=== PATIENT | female | born 1950 | race Caucasian/White ===

== ENCOUNTER → 2022-07-30 12:47 | Outpatient (CLI) | payer MEDICARE, OTHER, SELFPAY ==
--- NOTE | 2022-07-30 12:54 | DI.RAD.S_ITS ---
PROCEDURE: FL BARIUM SWALLOW W SPEECH INDICATIONS: Dysphagia, unspecified COMPARISON: None. TECHNIQUE: Examination was conducted in conjunction with speech pathology per standard protocol. In the lateral projection, filming was performed of the patient swallowing. AP projection filming may also be performed with patient swallowing. COMPARISON: FINDINGS: Function: The oral preparatory phase appears normal, with proper containment. The subsequent oral propulsive phase, pharyngeal phase, and esophageal phase of swallowing also appear normal with all proffered substances. No laryngotracheal penetration or aspiration. No pathologic vallecular pooling. Morphology: No cricopharyngeal bar is identified. No cervical esophageal webs. No Zenker's diverticulum. No strictures. IMPRESSION: No evidence of aspiration or penetration. Please see speech pathology report for complete findings. Dictated by: Eduard Ching M.D. on 07/30/2022 at 16:41 Approved by: Eduard Ching M.D. on 07/30/2022 at 16:41
--- NOTE | 2022-07-30 16:43 | ST.SWALLOW ---
Visit Care Team Role Provider Type Isidro Betancourt MD Attending Provider Non-Staff Primary Care Provider Referring Provider Specialty: Family Practice Address: [address] [place] [address], [id number] Email: Modified Barium Swallow Study [employer] Modified Barium Swallow Study Start: 07/30/22 16:28 Freq: Status: Active Protocol: Document 07/30/22 16:28 ZS (Rec: 07/30/22 16:43 ZS [id number]) Modified Barium Swallow Study Total Time Visit Start Time 13:30 Visit Stop Time 14:00 Total Visit Minutes 30 Setting Setting Outpatient Care Patient Information Identification Type Name Patient History The pt reported coughing prior to putting food in her mouth, stating that sometimes the smell of a food can cause coughing. She added coughing occurs when she eats solids or drinks liquids and she has been unable to identify a pattern despite keeping a food log. Pt stated it feels like the food gets stuck and won 't go up or down despite continued coughing. Pt reported coughing can last 30- 45 minutes before food clears. She stated she is often the last one eating at the table and it takes her about 45 minutes longer to finish her meal than everyone else at the table. Pt reported eating mostly ruffage (e.g., salads ) and needing to chew thoroughly, which contributes to long meal times. She added it is harder to chew now as she is missing teeth. Subjective Observations The pt arrived on time and ambulated with a walker. Provided overview of process and procedure and pt expressed understanding and agreed to participate. Patient Positioning Position View Lat-A/P Imaging Lateral View Textures Administered Trials Presented Thin Liquid via Cup,Solomon Liquid via Cup,Regular Textures Oral Phase Source: MBSIMP (TM) (C) Bolus Specific Scoring Grid Lip Closure No Impairment (WNL) Tongue Control During Bolus Hold No Impairment (WNL) Bolus Prep/Mastication No Impairment (WNL) Bolus Transport/Lingual Motion No Impairment (WNL) A/P Lingual Propulsion Delay No Oral Residue Mild Impairment Residue Clearing No Impairment (WNL) Nasal Regurgitation No Additional Oral Phase Observations The pt exhibited no anterior or posterior loss of bolus during tongue hold. Timely and efficient mastication and a/p propulsion observed. Mild oral residue in oral cavity following swallows, which pt cleared with a second swallow independently. Pharyngeal Phase Source: MBSIMP (TM) (C) Bolus Specific Scoring Grid Delayed Initiation of Pharyngeal Swallow Yes: head of bolus in pyriforms Soft Palate Elevation No Impairment (WNL) Tongue Base Strength/Range of Motion No Impairment (WNL) Residue Along the Tongue Base No Laryngeal Elevation No Impairment (WNL) Anterior Hyoid Movement No Impairment (WNL) Epiglottic Range of Motion No Impairment (WNL) Vallecular Residue Yes Clearance of Vallecular Residue No Impairment (WNL) Laryngeal Vestibular Closure No Impairment (WNL) Pharyngeal Stripping Wave Mild Impairment Pharyngeal Contraction No Impairment (WNL) Posterior Pharyngeal Wall Residue No Upper Esophageal Sphincter Opening No Impairment (WNL) Residue in the Pyriform Sinuses Yes Clearance of Residue in the Pyriform No Impairment (WNL) Sinuses Esophageal Clearance Upright Position No Impairment (WNL) Pharyngoesophageal Backflow Observed No Additional Pharyngeal Phase Observations Delayed initiation of pharyngeal swallow observed, with the head of the bolus in the pyriforms. Initiation of pharyngeal swallow was slow, though once triggered, hyoid elevation and excursion and laryngeal vestibular closure were WNL. No instances of aspiration or penetration observed. One instance of coughing on initial trial of thin liquids, which pt stated was a reaction to barium flavor rather than difficulty swallowing. Imaging reinforced this as no penetration was observed when coughing occurred. Mild residue remained in valleculae and pyriforms, though was cleared with a spontaneous second swallow. A/P View Textures Administered Trials Presented Thin Liquid via Cup,Barium Tablet A/P View Observations Pharyngeal Contraction No Impairment (WNL) Esophageal Function Slowed Clearing Esophageal Clearance Upright Position Minimal Impairment Additional Observations Pt presented with slowed clearing of barium tablet and minimally slowed clearing of thin barium. Pt may exhibit increased difficulty with thicker liquids and rapid rate of eating, based on slowed clearing observed and pt report of needing to eat slowly to avoid feeling food get stuck when she swallows. Barium tablet cleared with additional swallows of water. Clinical Impressions Findings The pt presents with swallowing WNL. She exhibited slowed clearing of barium tablet through esophagus and may benefit from GI referral if she continues to need to eat meals at a markedly slow pace to avoid feeling food get stuck when she swallows. Nothing present to indicate why pt experiences coughing, as airway protection was WNL and no instances of aspiration or penetration were observed. Due to pt report of coughing when smelling certain foods, referral for jacquard card lacer is recommended to rule out food sensitivities or other possible causes for smell aversion to foods. Patient Appropriate for Therapy No Recommendations Diet Liquids Order Thin Diet Order Regular Medication Recommendation As Tolerated Treatment Plan Recommended Referrals GI Consult,Dietary Consult
== END ==
PROVIDERS: PCP Family Medicine; Referring Provider Family Medicine; Visit Provider Family Medicine
DX: R13.10 Dysphagia, unspecified (principal)
CPT/HCPCS: 74230; 92611

== ENCOUNTER → 2023-07-10 15:33 | Outpatient (CLI) | payer MEDICARE, OTHER, SELFPAY | PROVIDERS: PCP Family Medicine; Referring Provider Internal Medicine Critical Care Medicine; Visit Provider Internal Medicine Critical Care Medicine | DX: J44.9 Chronic obstructive pulmonary disease, unspecified (principal); Z87.891 Personal history of nicotine dependence | CPT/HCPCS: 94060; 94726; 94729 ==

== ENCOUNTER 2024-05-10 15:44 | Emergency (ER) | payer MEDICARE, SELFPAY ==
[2024-05-10 16:00] VITALS: BP 145/67; PULSE 71; RESP 18; TEMP 36.9; O2SAT 95; BMI 46.8
--- NOTE | 2024-05-10 16:22 | DI.US.S_ITS ---
PROCEDURE: US PELVIC COMPLETE INDICATIONS: Vaginal bleeding TECHNIQUE: Real-time scanning was performed of the pelvic organs, with image documentation. Additional endovaginal scanning was necessary due to incomplete visualization of the adnexal and endometrial structures by transabdominal scanning. COMPARISON: None. FINDINGS: Uterus: Uterus is normal in size at 8.0 x 4.4 x 3.5 cm. The myometrium is heterogeneous. The endometrium was difficult to measure. There is a 2.1 x 1.3 x 1.0 cm soft tissue lesion within the endometrial cavity with associated vascular stalk. This is suspicious for a endometrial polyp. There is also debris and hemorrhagic products within the endometrial cavity. Ovaries: Bilateral ovaries were not visualized on today's study. Other: No pathologic free abdominal or pelvic fluid. IMPRESSION: 1. There is a suspected 2.1 x 1.3 x 1.0 cm endometrial polyp. 2. The bilateral ovaries were not visualized on today's exam. We strive to produce accurate, complete, and clear reports of imaging services. To assist us in improving patient care, this report was composed using standard report templates and voice recognition software. Therefore, it may contain abnormal punctuation, insertions and/or omissions. Occasional wrong-word or sound-alike substitutions may occur. Though we review the report and make efforts to correct it, we do recommend that the report be read carefully in proper context to recognize any text inaccuracies. Dictated by: Joe Candelario M.D. on 05/10/2024 at 19:22 Approved by: Joe Candelario M.D. on 05/10/2024 at 19:25
[2024-05-10 16:52] LABS: Add Manual Diff / Slide Review NO; Basophils Absolute Auto 0 /uL (0-100); Basophils Percent Auto 0.5 % (0-2); Eosinophils Absolute Auto 100 /uL (0-450); Eosinophils Percent Auto 1.2 % (2-4); Hematocrit 43.5 % (36-46); Hemoglobin 14.5 g/dL (12.0-16.0); Lymphocytes Absolute Auto 2400 /uL (1100-4500); Lymphocytes Percent Auto 27.8 % (25-40); Mean Corpuscular HGB Conc 33.4 % (30-36); Mean Corpuscular Volume 92.9 fL (80-100); Monocytes Absolute Auto 1100 /uL (0-900); Monocytes Percent Auto 12.2 % (3-14); Neutrophils Absolute Auto 5100 /uL (1500-7000); Neutrophils Percent Auto 58.3 % (50-75); Platelet Count 227 X10^3/uL (150-400); Red Blood Cell Count 4.68 X10^6/uL (4.0-5.2); Red Cell Distribution Width 15.5 % (11.6-14.8); White Blood Cell Count 8.8 X10^3/uL (4.5-11.0)
[2024-05-10 16:59] LABS: INR 1.4 (0.9-1.3); Prothrombin Time 15.8 SECONDS (9.4-12.5)
[2024-05-10 17:02] LABS: PTT Partial Thromboplastin Tim 34 SECONDS (25.1-36.5)
[2024-05-10 17:03] LABS: BUN Creatinine Ratio 27.3 (6-22); Blood Urea Nitrogen 39 mg/dL (7-17); Carbon Dioxide 30 mmol/L (22-32); Chloride 100 mmol/L (98-107); Estimated Glomerular Filt Rate 38 mL/min (>60); Glucose 150 mg/dL (80-110); HEMOLYSIS 19 (0-50); Potassium 4.2 mmol/L (3.4-5.1); Sodium 137 mmol/L (137-145)
[2024-05-10 17:47] LABS: Bacteria Urine Many (>30); RBC Urine 0-1/HPF (0-5/HPF); Squamous Epithelial Cell Urine 0-1 /HPF (0-5/HPF); Urine Volume 10mL (spun); WBC Urine 0-1/HPF (0-5/HPF)
[2024-05-10 17:48] LABS: Culture Indicated Urine Specimen Cultured
--- NOTE | 2024-05-10 19:00 | ED.FEMALEGU ---
HPI - Female Genitourinary <Jorge L Lucero PA-C - Last Filed: 05/10/24 19:28> General Chief complaint: Vaginal Bleeding Stated complaint: bleeding vaginally, sent by MD Time Seen by Provider: 05/10/24 16:18 Source: patient Mode of arrival: Ambulatory History of Present Illness HPI Narrative: 74-year-old female with past medical history COPD, CHF, diabetes presents to the ED with 4 days of vaginal bleeding. Patient has a pessary in place for a prolapse, has had it changed out by her OBGYN every month. Patient is scheduled for a change of pessary at the end of this week. Patient denies that her pessary has caused her any irritation and endorses that it feels quite comfortable. Patient called her OBGYN who has ordered a scan for her, however patient and her [id number] came to the ED for further evaluation since they were extremely worried about a possible cancerous etiology. Patient is incontinent at baseline and says that she does have to use the bathroom every 15 minutes. Patient says that she has had blood gushed out every time she has had to urinate. Patient endorses fatigue and feeling out of it. Denies chest pain, abdominal pain, dysuria, syncope. Patient is not on exogenous hormones. Related Data Home Medications Medication Instructions Recorded Confirmed apixaban 5 mg tablet (Eliquis) 5 mg PO BID 06/09/23 08/07/23 bumetanide 2 mg tablet 2 mg PO BID 06/09/23 08/07/23 cholecalciferol (vitamin D3) 125 125 mcg PO DAILY 06/09/23 08/07/23 mcg (5,000 unit) capsule empagliflozin 25 mg tablet 25 mg PO DAILY 06/09/23 08/07/23 (Jardiance) famotidine 40 mg tablet 40 mg PO BEDTIME 06/09/23 08/07/23 gabapentin 100 mg capsule 100 mg PO BID 06/09/23 08/07/23 magnesium citrate 100 mg capsule 100 mg PO DAILY 06/09/23 08/07/23 metoprolol tartrate 50 mg tablet 50 mg PO DAILY 06/09/23 08/07/23 mirtazapine 7.5 mg tablet 7.5 mg PO DAILY 06/09/23 08/07/23 potassium chloride 20 mEq 20 meq PO BID 06/09/23 08/07/23 tablet,extended release(part/cryst) spironolactone 25 mg tablet 25 mg PO DAILY 06/09/23 08/07/23 thyroid (pork) 90 mg tablet 90 mg PO DAILY 06/09/23 08/07/23 ([place] Thyroid) allopurinol 300 mg tablet 300 mg PO DAILY 01/27/24 01/27/24 colchicine 0.6 mg capsule 0.6 mg PO DAILY 01/27/24 01/27/24 (Mitigare) Previous Rx's Medication Instructions Recorded doxycycline hyclate 150 mg tablet 150 mg PO BID #14 tabs 01/27/24 tiotropium bromide 18 mcg capsule 1 cap inhalation DAILY #1 inh 01/27/24 with inhalation device (Spiriva with HandiHaler) Allergies Allergy/AdvReac Type Severity Reaction Status Date / Time levothyroxine sodium Allergy Verified 01/27/24 07:54 [From Synthroid] azithromycin AdvReac Unknown Verified 01/27/24 07:54 cyclosporine [From Restasis] AdvReac Unknown Verified 01/27/24 07:54 dulaglutide [From Trulicity] AdvReac Unknown Verified 01/27/24 07:54 glyburide AdvReac Unknown Verified 01/27/24 07:54 lincomycin [From Lincocin] AdvReac Unknown Verified 01/27/24 07:54 lisinopril AdvReac Unknown Verified 01/27/24 07:54 losartan AdvReac Unknown Verified 01/27/24 07:54 metformin AdvReac Unknown Verified 01/27/24 07:54 Sulfa (Sulfonamide AdvReac Unknown Verified 01/27/24 07:54 Antibiotics) trimethoprim AdvReac Unknown Verified 01/27/24 07:54 yellow dye AdvReac Unknown Verified 01/27/24 07:54 trianex AdvReac Unknown Uncoded 01/27/24 07:54 Review of Systems <Jorge L Lucero PA-C - Last Filed: 05/10/24 19:28> Constitutional Constitutional: Denies chills, Denies fatigue, Denies fever(s), Denies frequent falls, Denies lethargy and Denies weakness Eyes Eyes: Denies change in vision, Denies eye discharge, Denies irritation and Denies loss of vision ENT Ears, Nose, Mouth, and Throat: Denies change in voice, Denies dizziness, Denies neck pain, Denies sore throat and Denies throat swelling Cardiovascular Cardiovascular: Denies chest pain, Denies irregular heart rhythm, Denies lightheadedness, Denies palpitations, Denies dyspnea, Denies dyspnea on exertion and Denies orthopnea Respiratory Respiratory: Denies cough, Denies dyspnea, Denies dyspnea on exertion and Denies wheezing Gastrointestinal Gastrointestinal: Denies abdominal pain, Denies change in bowel habits, Denies diarrhea, Denies nausea and Denies vomiting Genitourinary Genitourinary: Reports abnormal vaginal bleeding Musculoskeletal Musculoskeletal: Denies neck pain and Denies numbness Integumentary/Breasts Skin/Breast: Denies pruritus, Denies erythema, Denies rash and Denies wounds Neurologic Neurologic: Denies behavioral changes, Denies confusion, Denies dizziness, Denies frequent falls, Denies loss of vision, Denies numbness and Denies weakness Psychiatric Psychiatric: Denies anxiety, Denies behavioral changes, Denies confusion, Denies depression, Denies homicidal ideation and Denies suicidal ideation Endocrine Endocrine: Denies fatigue, Denies flushing and Denies palpitations Hematologic/Lymphatic Hematologic/Lymphatic: Denies easy bruising Allergic/Immunologic Allergic/Immunologic: Denies urticaria, Denies throat swelling and Denies wheezing Patient History <Jorge L Lucero PA-C - Last Filed: 05/10/24 19:28> Medical History Paroxysmal atrial fibrillation GERD (gastroesophageal reflux disease) Hyperlipemia Candidiasis, intertrigo Psoriasis Congestive heart failure Pulmonary hypertension Urinary incontinence Dysphagia Atrophic vaginitis Right lumbar radiculopathy Lofton's disease Degenerative arthritis Psoriatic arthritis Diabetic nephropathy Diabetes Last Alcoholic Drink: does not use Substance Use Type: does not use Exam <Jorge L Lucero PA-C - Last Filed: 05/10/24 19:28> Narrative Exam Narrative: Const General:?cooperative, healthy appearing and comfortable [facility] Head:?normal to inspection Ears:?hearing grossly normal bilaterally Nose:?external nose normal Face and sinus:?normal facial exam and sinuses nontender Mouth:?oral mucosae normal Throat:?posterior oropharynx normal Eyes General:?appearance normal, both eyes and all related structures Neck Neck:?normal visual inspection and no lymphadenopathy noted Resp Effort & Inspection:?normal respiratory effort Auscultation:?clear to auscultation bilaterally Cardio Rate:?regular rate Rhythm:?regular rhythm Pessary was removed. Vaginal bleeding noted on exam. Unclear source of the vaginal bleed. Neuro General:?patient alert, patient awake and patient oriented x3 Initial Vital Signs Initial Vital Signs: Vital Signs Temperature 98.5 F 05/10/24 16:00 Pulse Rate 71 05/10/24 16:00 Respiratory Rate 18 05/10/24 16:00 Blood Pressure 145/67 H 05/10/24 16:00 Pulse Oximetry 95 05/10/24 16:00 Oxygen Delivery Method Room Air 05/10/24 16:00 <Lucero Callahan DO - Last Filed: 05/11/24 05:18> Initial Vital Signs Initial Vital Signs: Vital Signs Temperature 98.5 F 05/10/24 16:00 Pulse Rate 71 05/10/24 16:00 Respiratory Rate 18 05/10/24 16:00 Blood Pressure 145/67 H 05/10/24 16:00 Pulse Oximetry 95 05/10/24 16:00 Oxygen Delivery Method Room Air 05/10/24 16:00 Course <Jorge L Lucero PA-C - Last Filed: 05/10/24 19:28> Orders Ordered: ED Orders 05/10/24 16:07 Type and Screen Stat 05/10/24 16:10 Urine Culture Stat Urine Microscopic Stat 05/10/24 16:22 US pelvic complete Stat 05/10/24 16:33 Basic Metabolic Panel Stat Complete Blood Count AUTO DIFF Stat PT [Prothrombin Time INR] Stat PTT [PTT Partial Thromboplastin Beau] Stat Vital Signs Vital signs: Vital Signs - 8 hr 05/10/24 16:00 Temperature 98.5 F Pulse Rate 71 Respiratory Rate 18 Blood Pressure 145/67 H Pulse Oximetry 95 Oxygen Delivery Method Room Air <Lucero Callahan DO - Last Filed: 05/11/24 05:18> Orders Ordered: ED Orders 05/10/24 16:07 Type and Screen Stat 05/10/24 16:10 Urine Culture Stat Urine Microscopic Stat 05/10/24 16:22 US pelvic complete Stat 05/10/24 16:33 Basic Metabolic Panel Stat Complete Blood Count AUTO DIFF Stat PT [Prothrombin Time INR] Stat PTT [PTT Partial Thromboplastin Beau] Stat Vital Signs Vital signs: Vital Signs - 8 hr 05/10/24 16:00 Temperature 98.5 F Pulse Rate 71 Respiratory Rate 18 Blood Pressure 145/67 H Pulse Oximetry 95 Oxygen Delivery Method Room Air MDM - Female Genitourinary <Jorge L Lucero PA-C - Last Filed: 05/10/24 19:28> Lab Data 05/10/24 16:33 05/10/24 16:33 Labs: Lab Results 05/10/24 05/10/24 Range/Units 16:10 16:33 WBC 8.8 (4.5-11.0) X10^3/uL RBC 4.68 (4.0-5.2) X10^6/uL Hgb 14.5 (12.0-16.0) g/dL Hct 43.5 (36-46) % MCV 92.9 (80-100) fL MCH 31.0 (26-34) PG MCHC 33.4 (30-36) % RDW 15.5 H (11.6-14.8) % Plt Count 227 (150-400) X10^3/uL Neut % (Auto) 58.3 (50-75) % Lymph % (Auto) 27.8 (25-40) % [place] % (Auto) 12.2 (3-14) % Eos % (Auto) 1.2 L (2-4) % Baso % (Auto) 0.5 (0-2) % Neut # (Auto) 5100 (3099-5669) /uL Lymph # (Auto) 2400 (0895-8462) /uL [place] # (Auto) 1100 H (0-900) /uL Eos # (Auto) 100 (0-450) /uL Baso # (Auto) 0 (0-100) /uL PT 15.8 H (9.4-12.5) SECONDS INR 1.4 H (0.9-1.3) APTT 34 (25.1-36.5) SECONDS Sodium 137 (137-145) mmol/L Potassium 4.2 (3.4-5.1) mmol/L Chloride 100 (98-107) mmol/L Carbon Dioxide 30 (22-32) mmol/L BUN 39 H (7-17) mg/dL Creatinine 1.43 H (0.52-1.04) mg/dL Estimated GFR 38 L (>60) mL/min BUN/Creatinine Ratio 27.3 H (6-22) Glucose 150 H (80-110) mg/dL Calcium 9.0 (8.4-10.2) mg/dL Urine RBC 0-1/hpf (0-5/HPF) Urine WBC 0-1/hpf (0-5/HPF) Ur Squamous Epith Cells 0-1 /hpf (0-5/HPF) Urine Bacteria Many (>30) H (None) Ur Culture Indicated? Specimen cultured Vol Urine Centrifuged 10ml (spun) Point of Care Testing Glucose POC 115 Urine Dip Bedside Urine Glucose 500 mg/dl Bedside Urine Bilirubin - Negative Bedside Urine Ketone - Negative Urine Specific Ignacio 1.010 Bedside Urine Occult Blood +++ Bedside Urine pH 6.5 Bedside Urine Protein - Negative Bedside Urine Urobilinogen - Negative Bedside Urine Nitrite - Negative Bedside Urine Leukocytes +/- 15 Esterase MDM Narrative Medical decision making narrative: 74-year-old female with past medical history COPD, CHF, diabetes presents to the ED with 4 days of vaginal bleeding. Concern for vaginal laceration/wound versus atrophy versus hematuria versus rectal bleeding versus malignancy versus other. Will obtain labs, UA, pelvic ultrasound. Will reassess. Pessary was removed prior to the ultrasound, and vaginal bleeding was noted, although source of bleed was unable to be identified. Labs within normal limits. UA without UTI. Awaiting ultrasound results at this time. Patient is signed out to Dr. Lucero Callahan at this time. <Lucero Callahan DO - Last Filed: 05/11/24 05:18> Lab Data Labs: Lab Results 05/10/24 05/10/24 Range/Units 16:10 16:33 WBC 8.8 (4.5-11.0) X10^3/uL RBC 4.68 (4.0-5.2) X10^6/uL Hgb 14.5 (12.0-16.0) g/dL Hct 43.5 (36-46) % MCV 92.9 (80-100) fL MCH 31.0 (26-34) PG MCHC 33.4 (30-36) % RDW 15.5 H (11.6-14.8) % Plt Count 227 (150-400) X10^3/uL Neut % (Auto) 58.3 (50-75) % Lymph % (Auto) 27.8 (25-40) % [place] % (Auto) 12.2 (3-14) % Eos % (Auto) 1.2 L (2-4) % Baso % (Auto) 0.5 (0-2) % Neut # (Auto) 5100 (4751-6349) /uL Lymph # (Auto) 2400 (9830-4365) /uL [place] # (Auto) 1100 H (0-900) /uL Eos # (Auto) 100 (0-450) /uL Baso # (Auto) 0 (0-100) /uL PT 15.8 H (9.4-12.5) SECONDS INR 1.4 H (0.9-1.3) APTT 34 (25.1-36.5) SECONDS Sodium 137 (137-145) mmol/L Potassium 4.2 (3.4-5.1) mmol/L Chloride 100 (98-107) mmol/L Carbon Dioxide 30 (22-32) mmol/L BUN 39 H (7-17) mg/dL Creatinine 1.43 H (0.52-1.04) mg/dL Estimated GFR 38 L (>60) mL/min BUN/Creatinine Ratio 27.3 H (6-22) Glucose 150 H (80-110) mg/dL Calcium 9.0 (8.4-10.2) mg/dL Urine RBC 0-1/hpf (0-5/HPF) Urine WBC 0-1/hpf (0-5/HPF) Ur Squamous Epith Cells 0-1 /hpf (0-5/HPF) Urine Bacteria Many (>30) H (None) Ur Culture Indicated? Specimen cultured Vol Urine Centrifuged 10ml (spun) Point of Care Testing Glucose POC 115 Urine Dip Bedside Urine Glucose 500 mg/dl Bedside Urine Bilirubin - Negative Bedside Urine Ketone - Negative Urine Specific Ignacio 1.010 Bedside Urine Occult Blood +++ Bedside Urine pH 6.5 Bedside Urine Protein - Negative Bedside Urine Urobilinogen - Negative Bedside Urine Nitrite - Negative Bedside Urine Leukocytes +/- 15 Esterase MDM Narrative Medical decision making narrative: 74-year-old female with past medical history COPD, CHF, diabetes presents to the ED with 4 days of vaginal bleeding. Concern for vaginal laceration/wound versus atrophy versus hematuria versus rectal bleeding versus malignancy versus other. Will obtain labs, UA, pelvic ultrasound. Will reassess. Pessary was removed prior to the ultrasound, and vaginal bleeding was noted, although source of bleed was unable to be identified. Labs within normal limits. UA without UTI. Awaiting ultrasound results at this time. Patient is signed out to Dr. Lucero Callahan at this time. 05/10/2024:Dr. Callahan. Patient signed out to myself by TERRI Lucero. Patient's labs show hemoglobin of 14.5 white count 8.8 platelets of 227, INR 1.4, creatinine is 1.43 with a BUN of 39 otherwise normal electrolytes glucose is 150 with a calcium of 9 Urine nitrate negative, positive for leuks, positive for blood, 500 glucose shows many bacteria, 1 RBC 1 white cell, 1 squamous. Pelvic ultrasound shows suspected 2.1 x 1.3 x 1 cm endometrial polyp bilateral ovaries not visualized on exam myometrium is heterogeneous with a normal uterine size at 8 x 4.4 x 3.5 cm endometrium was difficult to measure. Debride hemorrhagic products in the endometrial canal. No other pathologic free abdominal or pelvic fluid. Spoke with Dr. Short, video presentation operator for gynecology. She is happy to see the patient they will reach out no please see her by or Thursday that is weak. Patient and family reviewed return precautions, all questions answered. Discussed if she has continued heavy bleeding to hold her anticoagulants. If only spotting or very very mild she can continue with it. Discharge Plan Departure Patient Disposition: Home Clinical Impression: Vaginal bleeding Activity Restrictions/Additional Instructions: Follow up with Gynecology. 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 You can reach out to Dr. Short's office, goal is to have you seen by or Thursday. They should reach out to you in the next 24 hours to set up an appointment. If you have not heard from them by tomorrow afternoon please call. Your labs overall are appropriate creatinine slightly elevated but this maybe your baseline I do not have priors for comparison. Your ultrasound does show a possible endometrial polyp, this does need to be evaluated by Gynecology to rule out malignancy. Please return for fevers, new abdominal back or flank pain, increasing bleeding, lightheadedness or passing out, large clots are going through a pad more than an hour or other new or concerning changes. Prescriptions: No Action doxycycline hyclate 150 mg tablet 150 mg PO BID Qty: 14 0RF Rx Instructions: If needed for sinusitis or bronchitis tiotropium bromide [Spiriva with HandiHaler] 18 mcg capsule, w/inhalation device 1 cap inhalation DAILY Qty: 1 12RF Rx Instructions: puncture 1 cap using device; one dose = 2 inhalations allopurinol 300 mg tablet 300 mg PO DAILY colchicine [Mitigare] 0.6 mg capsule 0.6 mg PO DAILY potassium chloride 20 mEq tablet,ER particles/crystals 20 meq PO BID bumetanide 2 mg tablet 2 mg PO BID gabapentin 100 mg capsule 100 mg PO BID thyroid (pork) [[place] Thyroid] 90 mg tablet 90 mg PO DAILY metoprolol tartrate 50 mg tablet 50 mg PO DAILY spironolactone 25 mg tablet 25 mg PO DAILY Eliquis 5 mg tablet 5 mg PO BID Jardiance 25 mg tablet 25 mg PO DAILY mirtazapine 7.5 mg tablet 7.5 mg PO DAILY famotidine 40 mg tablet 40 mg PO BEDTIME cholecalciferol (vitamin D3) 125 mcg (5,000 unit) capsule 125 mcg PO DAILY magnesium citrate 100 mg capsule 100 mg PO DAILY Referrals: Isidro Betancourt MD [Primary Care Provider] - Eliz Short MD [Physician] - Danielle Garcia DO [Physician] - Stand Alone Forms: Patient Portal/API
[2024-05-10 20:37] VITALS: BP 119/86; PULSE 61; RESP 18; O2SAT 95
== END 2024-05-10 20:40 | disposition home or self-care (01) ==
PROVIDERS: Emergency Medicine; Student in an Organized Health Care Education/Training Program; Emergency Provider Emergency Medicine; PCP Family Medicine
DX: N93.9 Abnormal uterine and vaginal bleeding, unspecified (principal); Z79.01 Long term (current) use of anticoagulants; Z79.899 Other long term (current) drug therapy
CPT/HCPCS: 76856; 80048; 81003; 81015; 82962; 85025; 85610; 85730; 87077; 87086; 87186; 99283; 99284

== ENCOUNTER 2024-06-10 08:12 | Day surgery (SDC) | payer MEDICARE, SELFPAY ==
[2024-06-07 09:32] VITALS: BMI 46.8
[2024-06-10] VITALS (7 sets, daily range): BP systolic 100–124; BP diastolic 57–69; PULSE 57–68; RESP 13–23; TEMP 36.1–36.5; O2SAT 95–97; BMI 47.2
--- NOTE | 2024-06-10 | PATH_ITS ---
[facility] Accession Number: [id number] No. of containers..01 Tissue . 01 Material submitted: . endometrium - ENDOMETRIAL CONTENTS . 01 Diagnosis: A. ENDOMETRIUM, BIOPSY: Endometrioid adenocarcinoma, FIGO grade 2 (of 3). DENEEN 06/15/2024 0913 Local . 01 Comment: Dr. Paul's office (directly reported to Gayle Vaelra RN) is notified of the preliminary findings of this case on 06/15/2024. . 01 Electronically signed: . Ada Diego MD, Pathologist NPI- [id number] . 01 Gross description: . Received in formalin with two patient identifiers and endometrial contents, are multiple cyr soft tissue fragments admixed with mucohemorrhagic material aggregating to 5.2 x 2.5 x 1.1 cm. Filtered and submitted in cassettes A1-A2. ([id number]) /[facility] 06/11/2024 1900 Local . 01 Microscopic: . A panel of immunohistochemical stains* are performed on blocks A1 and A2 in order to evaluate an area of higher grade morphology/solid non-squamous component for serous neoplasia with appropriately staining external controls. The areas of interest in both parts A1 and A2 demonstrate the following immunoprofile in support of no evidence of serous neoplasia: . P53: Wild type. P16: No diffuse overexpression. . Immunohistochemical stains for mismatch repair proteins are pending and results will be reported in an addendum. . * This test was developed and its performance characteristics determined by [facility]. It has not been cleared or approved by the U.S. Food and Drug Administration. The FDA has determined that such clearance or approval is not necessary. This test is used for clinical purposes. It should not be regarded as investigational or for research. . 01 Pathologist provided ICD-10: C54.0, C54.1 . 01 CPT . 693121, A16629, N64907 Specimen Comment: A courtesy copy of this report has been sent to [facility] Performed at: [address] [id number] MD Tigre Hoang MD Phone: [phone]
--- NOTE | 2024-06-10 08:48 | PM.GYNHP.1 ---
History of Present Illness History of Present Illness Reason for admission: other (recent single episode postmenopausal bleeding ) Narrative: Pal Guererro is a 74 year old postmenopausal female who presented to office 05/13/24 for further evaluation of acute onset postmenopausal bleeding on chronic anticoagulation. OSH imaging obtained at time of initial bleed () resulted significant for endometrial polyp. At time of office encounter vaginal bleeding had resolved as patient had discontinued her home eliquis. Patient was counseled on recommendation for direct visualization and removal of abnormal tissue via hysteroscopy, poylpectomy/dilation and curettage and patient was scheduled for procedure today. Since last office encounter she has undergone preoperative clearance evaluation by her PCP as well as anesthesia provider given multiple medical morbidities. Pt denies any further vaginal bleeding since time of initial event, states that she has remained off her eliquis which was previously started by a developer [employer] for ?congestive heart failure without personal h/o VTE. Patient affirms desire to proceed with procedure today as scheduled. [facility] Medical History (Updated 06/07/24 @ 12:03 by Jazmine Geronimo RN) Hypothyroid Abnormal pelvic ultrasound Postmenopausal bleeding Paroxysmal atrial fibrillation GERD (gastroesophageal reflux disease) Hyperlipemia Candidiasis, intertrigo Psoriasis Congestive heart failure Pulmonary hypertension Urinary incontinence Dysphagia Atrophic vaginitis Right lumbar radiculopathy Lofton's disease Degenerative arthritis Psoriatic arthritis Diabetic nephropathy Diabetes Surgical History (Updated 06/07/24 @ 12:03 by Jazmine Geronimo RN) S/P foot surgery, left S/P foot surgery, right History of Social History Smoking Status: Former smoker Meds Home Medications and Allergies Home Medications Medication Instructions Recorded Confirmed Type bumetanide 2 mg tablet 2 mg PO BID 06/09/23 08/07/23 History cholecalciferol (vitamin D3) 125 125 mcg PO DAILY 06/09/23 08/07/23 History mcg (5,000 unit) capsule empagliflozin 25 mg tablet 25 mg PO DAILY 06/09/23 08/07/23 History (Jardiance) famotidine 40 mg tablet 40 mg PO BEDTIME 06/09/23 08/07/23 History gabapentin 100 mg capsule 100 mg PO BID 06/09/23 08/07/23 History magnesium citrate 100 mg capsule 100 mg PO DAILY 06/09/23 08/07/23 History metoprolol tartrate 50 mg tablet 50 mg PO DAILY 06/09/23 08/07/23 History mirtazapine 7.5 mg tablet 7.5 mg PO DAILY 06/09/23 08/07/23 History potassium chloride 20 mEq 20 meq PO BID 06/09/23 08/07/23 History tablet,extended release(part/cryst) spironolactone 25 mg tablet 25 mg PO DAILY 06/09/23 08/07/23 History thyroid (pork) 90 mg tablet 90 mg PO DAILY 06/09/23 08/07/23 History ([place] Thyroid) allopurinol 300 mg tablet 300 mg PO DAILY 01/27/24 01/27/24 History colchicine 0.6 mg capsule 0.6 mg PO DAILY 01/27/24 01/27/24 History (Mitigare) doxycycline hyclate 150 mg tablet 150 mg PO BID #14 tabs 01/27/24 01/27/24 Rx tiotropium bromide 18 mcg capsule 1 cap inhalation DAILY #1 inh 01/27/24 01/27/24 Rx with inhalation device (Spiriva with HandiHaler) Allergies Allergy/AdvReac Type Severity Reaction Status Date / Time levothyroxine sodium Allergy Verified 06/10/24 08:34 [From Synthroid] azithromycin AdvReac Unknown Verified 06/10/24 08:34 cyclosporine [From Restasis] AdvReac Unknown Verified 06/10/24 08:34 dulaglutide [From Trulicity] AdvReac Unknown Verified 06/10/24 08:34 glyburide AdvReac Unknown Verified 06/10/24 08:34 lincomycin [From Lincocin] AdvReac Unknown Verified 06/10/24 08:34 lisinopril AdvReac Unknown Verified 06/10/24 08:34 losartan AdvReac Unknown Verified 06/10/24 08:34 metformin AdvReac Unknown Verified 06/10/24 08:34 Sulfa (Sulfonamide AdvReac Unknown Verified 06/10/24 08:34 Antibiotics) trimethoprim AdvReac Unknown Verified 06/10/24 08:34 yellow dye AdvReac Unknown Verified 06/10/24 08:34 trianex AdvReac Unknown Uncoded 05/13/24 14:03 Review of Systems Review of Systems ROS: Yes All systems reviewed with the patient and are negative except as otherwise documented Exam Vital Signs (past 8 hours): reviewed, as per anesthesia documentation Glucose POC: 116 Const General: cooperative and comfortable Nutritional Appearance: obese Orientation: alert, awake and oriented x3 Limitations: mental status not altered Resp Effort & Inspection: normal respiratory effort Other: deferred per shared decision making with patient Neuro General: patient alert and patient oriented x3 Psych Mental Status: mental status grossly normal Judgment: judgment good Assessment & Plan Assessment and plan (1) Postmenopausal bleeding: Status: Acute (2) Abnormal pelvic ultrasound: Status: Acute Plan 74yo postmenopausal female presents for scheduled hysteroscopy with removal of abnormal tissue/polypectomy, dilation and curettage Patient affirms desire to proceed with procedure as scheduled anticipate dc to home following recovery pending intraoperative findings/course routine postop f/u in office as scheduled Time-Based Coding :: [20] spent with patient and on the chart (including review of chart, obtaining history, exam, reviewing outside data, placing orders, documenting exam and treatment plan, and counseling patient) on [06/10/24].
--- NOTE | 2024-06-10 08:54 | PM.PREOP ---
Pre-operative Note Interval Note History & Physical reviewed/Exam performed by Physician: Yes Changes to H&P: No H&P completed within 30 days and has changed as indicated here:: 05/13/24, 06/10/24
[2024-06-10] MEDS: ACETAMINOPHEN 325 MG TABLET 975 MG PO (09:12)
[2024-06-10] MEDS: ALBUTEROL/IPRATROPIUM 3 ML AMPUL INH (09:13)
[2024-06-10] MEDS: LACTATED RINGERS 1,000 ML 42 ML IV (09:13)
--- NOTE | 2024-06-10 09:13 | SUR.OPER ---
Lithotomy on padded OR bed, head on pillow, arms secured on padded arm boards at <90 degrees abduction. Legs secured in padded yellow fins stirrups.
--- NOTE | 2024-06-10 10:01 | PM.OP.1 ---
Operative Date/Time/Diagnoses Date of procedure: 06/10/24 Time of procedure: 10:02 Pre-op diagnosis: postmenopausal bleeding Post-op diagnosis: same Procedure & Clinicians Procedure: hysteroscopy, dilation and curettage Same procedure as scheduled: Yes Indications: postmenopausal bleeding Surgeon: Delia Paul Click Yes if Unassisted: Yes Anesthesia Type: General Operative Notes Findings: normal external female genitalia, perineum and anus vagina visually wnl parous cervix with noted atrophic changes, endocervical canal dilated to 5mm without additional visual abnormality endometrial cavity with diffuse polypoid appearance Closure Type: not applicable Specimen(s): other (endometrial contents) Estimated Blood Loss (mL): 5 Procedure in detail: Pt was taken to the operating room, transferred to OR table and anesthesia was induced with placement of LMA.? Pt had her legs placed in Steven stirrups and an exam under anesthesia was performed. The patient was prepped and draped in a sterile fashion.? A time out was performed. ?A sterile speculum was inserted into the vagina.? The cervix was visualized and grasped anteriorly using a single tooth tenaculum.? The uterus sounded to 8 cm and the cervical os was serially dilated using Tenorio dilators up to 17f to allow for passage of the hysteroscope.? The 5mm 30 degree hysteroscope was then inserted into the uterus with findings as noted.? The small Myosure device was introduced and the endometrium including visualized pathology was fractionally resected under direct visualization.? The hysteroscope was removed and the uterus was sharply curetted until a gritty texture was noted throughout.? The tenaculum was removed and hemostasis was noted at insertion sites following brief application of silver nitrate.? The speculum was removed and hemostasis was again noted to be excellent.? The patient then had her legs taken out of stirrups.? The patient tolerated the procedure well and without difficulty.? The patient was awakened from anesthesia and taken to PACU in stable condition. Fluid deficit 345mL Complications: none Post-operative Condition: stable Disposition: PACU
== END 2024-06-10 10:46 | disposition home or self-care (01) ==
PROVIDERS: PCP Family Medicine; Referring Provider Obstetrics & Gynecology; Visit Provider Obstetrics & Gynecology
PROC: 0UDB8ZZ Extraction of Endometrium, Via Natural or Artificial Opening Endoscopic (ICD-10-PCS; CPT 58558; principal; 2024-06-10 09:30)
DX: C54.1 Malignant neoplasm of endometrium (principal)
CPT/HCPCS: 58558; J1100; J2405; J2704; J3010

== ENCOUNTER 2025-03-08 14:14 | Emergency (ER) | payer MEDICARE, SELFPAY ==
[2025-03-08] VITALS (24 sets, daily range): BP systolic 105–153; BP diastolic 50–97; PULSE 68–118; RESP 16–30; TEMP 37; O2SAT 95–100; BMI 43.7
--- NOTE | 2025-03-08 14:26 | DI.RAD.S_ITS ---
PROCEDURE: XR CHEST 1V INDICATIONS: Chest Pain TECHNIQUE: One view of the chest was acquired. COMPARISON: [facility], CR, XR CHEST 1 VIEW, 03/05/2022, 21:32. FINDINGS: Surgical changes and devices: None. Lungs and pleura: Mild interstitial prominence. No pleural effusions or pneumothorax. Mediastinum: Mediastinal contours appear normal. Heart size is enlarged. Bones and chest wall: No suspicious bony lesions. Overlying soft tissues appear unremarkable. IMPRESSION: Cardiomegaly and mild interstitial prominence, correlate for mild pulmonary edema. Dictated by: Adrien Brand M.D. on 03/08/2025 at 15:10 Approved by: Adrien Brand M.D. on 03/08/2025 at 15:11
--- NOTE | 2025-03-08 14:33 | EKG_ITS ---
[place] [id number] [place] [id number] Test Date: 2025-03-08 Pat Name: Pal Guerrero Department: Room: Gender: Female Spa Attendant: VICKI : [id number] Requested By: Order Number: [id number] Reading MD: Kareem Fontaine MD Measurements Intervals [place] Rate: 106 P: [place]: QRS: -12 QRSD: 76 T: 41 QT: 356 QTc: 472 Interpretive Statements Atrial fibrillation with rapid ventricular response with premature ventricular or aberrantly conducted complexes Low voltage QRS Cannot rule out Anterior infarct , age undetermined NO PRIOR TRACING Electronically Signed On 03-09-2025 7:23:26 PDT by Kareem Fontaine MD
[2025-03-08 14:59] LABS: Add Manual Diff / Slide Review NO; Basophils Absolute Auto 100 /uL (0-100); Basophils Percent Auto 1.2 % (0-2); Eosinophils Absolute Auto 100 /uL (0-450); Eosinophils Percent Auto 0.6 % (2-4); Hematocrit 47.5 % (36-46); Hemoglobin 15.9 g/dL (12.0-16.0); Lymphocytes Absolute Auto 1400 /uL (1100-4500); Mean Corpuscular HGB Conc 33.5 % (30-36); Mean Corpuscular Hemoglobin 31.8 PG (26-34); Mean Corpuscular Volume 94.9 fL (80-100); Monocytes Absolute Auto 900 /uL (0-900); Monocytes Percent Auto 8.6 % (3-14); Neutrophils Absolute Auto 7500 /uL (1500-7000); Neutrophils Percent Auto 75.6 % (50-75); Platelet Count 266 X10^3/uL (150-400); Red Blood Cell Count 5.01 X10^6/uL (4.0-5.2); Red Cell Distribution Width 15.6 % (11.6-14.8)
--- NOTE | 2025-03-08 15:03 | ED.DIZZY ---
HPI - Dizziness <Michelle Hooper PA-C - Last Filed: 03/08/25 15:51> General Chief Complaint: Dizziness Stated Complaint: dizzy 2 days Time Seen by Provider: 03/08/25 15:03 Source: patient Mode of arrival: Wheelchair History of Present Illness HPI Narrative: Ms. Guerrero is a pleasant 75-year-old female with a past medical history of endometrial cancer s/p hysterectomy, paroxysmal atrial fibrillation on 2.5 Eliquis, COPD, RA, gout, urinary incontinence, CHF, insulin-dependent T2 DM, GERD, CKD who presents to the emergency department for dizziness since she had an outpatient lab draw yesterday. Describes dizziness as feeling weak, somewhat lightheaded, and also some room spinning when she stands up/moves around. When she is sitting at rest she does not feel dizzy. Reports that she was called to go to a PCP appointment today but opted to come to the ER instead because of her dizziness. She does take insulin but did not take it this morning because she was feeling too dizzy. Reports that she has been suffering with some vaginal burning and diarrhea over the last year. She denies chest pain, shortness of breath, cough, fevers, chills, abdominal pain, nausea, vomiting, vaginal discharge, vaginal rash. She is having no pain or focal weakness. She still produces urine. Her PCP is in [place] with Pending sale to [facility]. Related Data Home Medications Medication Instructions Recorded Confirmed bumetanide 2 mg tablet 2 mg PO BID 06/09/23 07/06/24 cholecalciferol (vitamin D3) 125 125 mcg PO DAILY 06/09/23 07/06/24 mcg (5,000 unit) capsule empagliflozin 25 mg tablet 25 mg PO DAILY 06/09/23 07/06/24 (Jardiance) famotidine 40 mg tablet 40 mg PO BEDTIME 06/09/23 07/06/24 gabapentin 100 mg capsule 200 mg PO BID 06/09/23 07/06/24 magnesium citrate 100 mg capsule 100 mg PO DAILY 06/09/23 07/06/24 metoprolol tartrate 50 mg tablet 50 mg PO DAILY 06/09/23 07/06/24 potassium chloride 20 mEq 20 meq PO BID 06/09/23 07/06/24 tablet,extended release(part/cryst) spironolactone 25 mg tablet 25 mg PO DAILY 06/09/23 07/06/24 thyroid (pork) 90 mg tablet 90 mg PO DAILY 06/09/23 07/06/24 ([place] Thyroid) allopurinol 300 mg tablet 300 mg PO DAILY 01/27/24 07/06/24 colchicine 0.6 mg capsule 0.6 mg PO DAILY 01/27/24 07/06/24 (Mitigare) albuterol sulfate 90 mcg/actuation inhalation 06/10/24 07/06/24 aerosol inhaler (Ventolin HFA) apixaban 5 mg tablet (Eliquis) mg 06/10/24 07/06/24 insulin aspart U-100 100 unit/mL sliding scale dose 06/10/24 07/06/24 subcutaneous solution (Novolog U-100 Insulin aspart) insulin glargine 100 unit/mL 30 unit SUBCUT BID 06/10/24 07/06/24 subcutaneous solution (Lantus U-100 Insulin) semaglutide 1 mg/dose (4 mg/3 mL) mg SUBCUT 06/10/24 07/06/24 subcutaneous pen injector (Ozempic) tiotropium bromide 18 mcg capsule 1 cap inhalation DAILY 06/10/24 07/06/24 with inhalation device (Spiriva with HandiHaler) Previous Rx's Medication Instructions Recorded tiotropium bromide 18 mcg capsule 1 cap inhalation DAILY #1 inh 01/27/24 with inhalation device (Spiriva with HandiHaler) Allergies Allergy/AdvReac Type Severity Reaction Status Date / Time levothyroxine sodium Allergy Verified 07/06/24 09:02 [From Synthroid] azithromycin AdvReac Unknown Verified 07/06/24 09:02 cyclosporine [From Restasis] AdvReac Unknown Verified 07/06/24 09:02 dulaglutide [From Trulicity] AdvReac Unknown Verified 07/06/24 09:02 glyburide AdvReac Unknown Verified 07/06/24 09:02 lincomycin [From Lincocin] AdvReac Unknown Verified 07/06/24 09:02 lisinopril AdvReac Unknown Verified 07/06/24 09:02 losartan AdvReac Unknown Verified 07/06/24 09:02 metformin AdvReac Unknown Verified 07/06/24 09:02 Sulfa (Sulfonamide AdvReac Unknown Verified 07/06/24 09:02 Antibiotics) trimethoprim AdvReac Unknown Verified 07/06/24 09:02 yellow dye AdvReac Unknown Verified 07/06/24 09:02 trianex AdvReac Unknown Uncoded 07/06/24 09:02 Review of Systems <Michelle Hooper PA-C - Last Filed: 03/08/25 15:51> Review of Systems ROS Unobtainable: All systems reviewed & are unremarkable except as noted in HPI and below Patient History <Michelle Hooper PA-C - Last Filed: 03/08/25 15:51> Medical History Rheumatoid arthritis (~1988) Sleep apnea (~2007) Asthma (~2005) Allergies (~2005) Gout Foot pain Chronic back pain Carpal tunnel syndrome Mumps (~1964) Endometrioid adenocarcinoma of uterus Hypothyroid Abnormal pelvic ultrasound Postmenopausal bleeding Paroxysmal atrial fibrillation GERD (gastroesophageal reflux disease) Hyperlipemia Candidiasis, intertrigo Psoriasis (~1989) Congestive heart failure Pulmonary hypertension Urinary incontinence (~1985) Dysphagia Atrophic vaginitis Right lumbar radiculopathy Lofton's disease Degenerative arthritis Psoriatic arthritis Diabetic nephropathy Diabetes (~1985) Surgical History Anesthesia History of cholecystectomy (~1985) S/P foot surgery, left S/P foot surgery, right History of Family History Father Diabetes mellitus History of heart disease Hypertension S/P triple vessel bypass Mother Hypertension Stroke Dementia Brother Diabetes mellitus History of heart disease History of kidney disease Brother Diabetes mellitus History of heart disease Hypertension Grandfather Cancer Diabetes mellitus History of heart disease Hypertension Grandmother History of heart disease Hypertension Lung disease Grandfather History of heart disease Diabetes mellitus Grandmother Diabetes mellitus History of heart disease Daughter Diabetes mellitus Son Diabetes mellitus Testicular cancer History of kidney disease Fibromyalgia Social History household members: family Smoking Status: Never smoker alcohol intake: current Smoking Status: Never smoker alcohol intake frequency: holidays/special occasions only Exam <Michelle Hooper PA-C - Last Filed: 03/08/25 15:51> Narrative Exam Narrative: GENERAL: 75 year old patient appears stated age. Well-developed patient, in no acute distress. HEAD: Atraumatic. Normocephalic. EYES: PERRL. No reproducible nystagmus.Extraocular motions intact. No scleral icterus. No injection or drainage. ENT: Nose without bleeding, purulent drainage. NECK: Trachea midline. Cervical ROM intact. CARDIOVASCULAR: Regular rate and irregularly irregular rhythm, rate mid 80s during exam RESPIRATORY: Nonlabored respirations. Speaking in clear, full sentences. Clear to auscultation, No wheezing, somewhat diminished BS BL LL. GASTROINTESTINAL: Abdomen soft, non-tender, nondistended. EXTREMITIES: 1+ BL pedal and radial pulses. NEURO: AOx3. Clear speech. Provides clear adequate history.Moves all 4 extremities appropriately. 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 Gross vision intact. SKIN: No rash or erythema of visible areas Initial Vital Signs Initial Vital Signs: Vital Signs Temperature 98.6 F 03/08/25 14:20 Pulse Rate 95 H 03/08/25 14:20 Respiratory Rate 03/08/25 14:20 Blood Pressure 124/87 03/08/25 14:20 Pulse Oximetry 100 03/08/25 14:20 Oxygen Delivery Method Room Air 03/08/25 14:20 <Saurav Hdz MD - Last Filed: 03/09/25 04:39> Initial Vital Signs Initial Vital Signs: Vital Signs Temperature 98.6 F 03/08/25 14:20 Pulse Rate 95 H 03/08/25 14:20 Respiratory Rate 03/08/25 14:20 Blood Pressure 124/87 03/08/25 14:20 Pulse Oximetry 100 03/08/25 14:20 Oxygen Delivery Method Room Air 03/08/25 14:20 <Gerardo Herring MD - Last Filed: 03/09/25 09:49> Initial Vital Signs Initial Vital Signs: Vital Signs Temperature 98.6 F 03/08/25 14:20 Pulse Rate 95 H 03/08/25 14:20 Respiratory Rate 03/08/25 14:20 Blood Pressure 124/87 03/08/25 14:20 Pulse Oximetry 100 03/08/25 14:20 Oxygen Delivery Method Room Air 03/08/25 14:20 Course <Michelle Hooper PA-C - Last Filed: 03/08/25 15:51> Orders Ordered: Discontinued Medications Ondansetron HCl (Ondansetron 4 Mg/2 Ml Inj) 4 mg IV NOW ONE Stop: 03/08/25 20:39 Last Admin: 03/08/25 20:45 Dose: 4 mg Documented By: Vital Signs Vital signs: Vital Signs - 8 hr 03/08/25 22:30 03/08/25 23:00 Pulse Rate 82 91 H Respiratory Rate 16 27 H Blood Pressure 105/56 L Pulse Oximetry 97 95 Oxygen Delivery Method Room Air Room Air <Saurav Hdz MD - Last Filed: 03/09/25 04:39> Orders Ordered: Discontinued Medications Ondansetron HCl (Ondansetron 4 Mg/2 Ml Inj) 4 mg IV NOW ONE Stop: 03/08/25 20:39 Last Admin: 03/08/25 20:45 Dose: 4 mg Documented By: Vital Signs Vital signs: Vital Signs - 8 hr 03/08/25 22:30 03/08/25 23:00 Pulse Rate 82 91 H Respiratory Rate 16 27 H Blood Pressure 105/56 L Pulse Oximetry 97 95 Oxygen Delivery Method Room Air Room Air <Gerardo Herring MD - Last Filed: 03/09/25 09:49> Course Course Narrative: Pt initially evaluated in Fast Track for the above symptoms and transferred to the ED for further evaluation and treatment. At the time of shift change, I was not able to interview and examine pt and will transfer care to Dr. Hdz for further evaluation and treatment. Gerardo Herring MD 03/08/25 1845 Orders Ordered: Discontinued Medications Ondansetron HCl (Ondansetron 4 Mg/2 Ml Inj) 4 mg IV NOW ONE Stop: 03/08/25 20:39 Last Admin: 03/08/25 20:45 Dose: 4 mg Documented By: Vital Signs Vital signs: Vital Signs - 8 hr 03/08/25 22:30 03/08/25 23:00 Pulse Rate 82 91 H Respiratory Rate 16 27 H Blood Pressure 105/56 L Pulse Oximetry 97 95 Oxygen Delivery Method Room Air Room Air MDM - Dizziness <Michelle Hooper PA-C - Last Filed: 03/08/25 15:51> Medical Records Attestation: I reviewed the patient's medical records. Lab Data 03/08/25 14:48 03/08/25 14:48 Labs: Lab Results 03/08/25 03/08/25 03/08/25 Range/Units 14:48 14:58 17:40 WBC 10.0 (4.5-11.0) X10^3/uL RBC 5.01 (4.0-5.2) X10^6/uL Hgb 15.9 (12.0-16.0) g/dL Hct 47.5 H (36-46) % MCV 94.9 (80-100) fL MCH 31.8 (26-34) PG MCHC 33.5 (30-36) % RDW 15.6 H (11.6-14.8) % Plt Count 266 (150-400) X10^3/uL Neut % (Auto) 75.6 H (50-75) % Lymph % (Auto) 14.0 L (25-40) % [place] % (Auto) 8.6 (3-14) % Eos % (Auto) 0.6 L (2-4) % Baso % (Auto) 1.2 (0-2) % Neut # (Auto) 7500 H (9904-5054) /uL Lymph # (Auto) 1400 (8861-5531) /uL [place] # (Auto) 900 (0-900) /uL Eos # (Auto) 100 (0-450) /uL Baso # (Auto) 100 (0-100) /uL PT 13.3 H (9.4-12.5) SECONDS INR 1.2 (0.9-1.3) APTT 32 (25.1-36.5) SECONDS Sodium 134 L (137-145) mmol/L Potassium 4.7 (3.4-5.1) mmol/L Chloride 94 L (98-107) mmol/L Carbon Dioxide 26 (22-32) mmol/L BUN 42 H (7-17) mg/dL Creatinine 1.55 H (0.52-1.04) mg/dL Estimated GFR 34 L (>60) mL/min BUN/Creatinine Ratio 27.1 H (6-22) Glucose 352 H (70-99) mg/dL Lactate 2.3 H 2.4 H (0.7-2.1) mmol/L Calcium 9.6 (8.4-10.2) mg/dL Magnesium 1.7 (1.6-2.3) mg/dL Total Bilirubin 2.3 H (0.2-1.3) mg/dL AST 47 H (14-36) IU/L ALT 33 (<35) IU/L Alkaline Phosphatase 186 H (38-126) U/L Total Creatine Kinase 60 (30-135) U/L Troponin I < 0.012 < 0.012 (0.01-0.034) ng/mL NT-Pro-B Natriuret Pep 3870 H (<450) pg/mL Total Protein 8.3 H (6.3-8.2) g/dL Albumin 4.5 (3.5-5.0) g/dL Globulin 3.8 (1.7-4.1) g/dL Albumin/Globulin Ratio 1.2 (1.0-2.8) Lipase 178 (23-300) U/L Urine Color Yellow Urine Appearance Clear Urine pH 6.0 (4.5-8.0) Ur Specific [place] 1.010 (1.000-1.035) Urine Protein Negative (Negative) Urine Glucose (UA) 3+ H (Negative) g/dL Urine Ketones Negative (NEGATIVE) Urine Occult Blood Trace-intact (Negative) Urine Nitrate Negative (Negative) Urine Bilirubin Negative (NEGATIVE) Urine Urobilinogen 0.2 (0.2) E.U./dL Ur Leukocyte Esterase Trace H (NEGATIVE) Urine RBC 0-1/hpf (0-5/HPF) Urine WBC 1-5/hpf (0-5/HPF) Ur Squamous Epith Cells 0-1 /hpf (0-5/HPF) Urine Bacteria None seen (None) Ur Culture Indicated? Cult not indicated Vol Urine Centrifuged 10ml (spun) MDM Narrative Medical decision making narrative: 75-year-old female with a past medical history of endometrial cancer s/p hysterectomy, paroxysmal atrial fibrillation on 2.5 Eliquis, COPD, RA, gout, urinary incontinence, CHF, insulin-dependent T2 DM, GERD, CKD who presents to the emergency department for dizziness since she had an outpatient lab draw yesterday. Differential diagnosis includes but is not limited to dehydration, orthostasis, anemia, UTI, electrolyte disturbance, arrhythmia, etc. On exam the patient is in no acute distress, nontoxic appearing, provides clear and full history. Dizziness NIO was started in triage and then patient was brought to the fast track area of the emergency department however EKG reveals AFib RVR, initial labs reveal elevated glucose of 352, BNP of 3,870, Lactate 2.3, GFR of 34. Patient will be transferred to the main emergency department for higher level of care and for cardiac monitoring. <Saurav Hdz MD - Last Filed: 03/09/25 04:39> Lab Data Attestation: I reviewed the patient's lab results. Lab results narrative: White blood cell count 61788, hemoglobin 15.9, platelets adequate. Glucose 352. Serum CO2 26. BUN 42 with creatinine 1.55. Sodium 134, potassium 4.7. T bili 2.3 noted, alkaline phosphatase 186, AST 47, ALT 33. Lactate 2.3 mild elevation. Urinalysis without obvious infection. Troponin negative/unmeasurable. BNP 3870 without comparisons located. Labs: Lab Results 03/08/25 03/08/25 03/08/25 Range/Units 14:48 14:58 17:40 WBC 10.0 (4.5-11.0) X10^3/uL RBC 5.01 (4.0-5.2) X10^6/uL Hgb 15.9 (12.0-16.0) g/dL Hct 47.5 H (36-46) % MCV 94.9 (80-100) fL MCH 31.8 (26-34) PG MCHC 33.5 (30-36) % RDW 15.6 H (11.6-14.8) % Plt Count 266 (150-400) X10^3/uL Neut % (Auto) 75.6 H (50-75) % Lymph % (Auto) 14.0 L (25-40) % [place] % (Auto) 8.6 (3-14) % Eos % (Auto) 0.6 L (2-4) % Baso % (Auto) 1.2 (0-2) % Neut # (Auto) 7500 H (5271-0487) /uL Lymph # (Auto) 1400 (8200-0639) /uL [place] # (Auto) 900 (0-900) /uL Eos # (Auto) 100 (0-450) /uL Baso # (Auto) 100 (0-100) /uL PT 13.3 H (9.4-12.5) SECONDS INR 1.2 (0.9-1.3) APTT 32 (25.1-36.5) SECONDS Sodium 134 L (137-145) mmol/L Potassium 4.7 (3.4-5.1) mmol/L Chloride 94 L (98-107) mmol/L Carbon Dioxide 26 (22-32) mmol/L BUN 42 H (7-17) mg/dL Creatinine 1.55 H (0.52-1.04) mg/dL Estimated GFR 34 L (>60) mL/min BUN/Creatinine Ratio 27.1 H (6-22) Glucose 352 H (70-99) mg/dL Lactate 2.3 H 2.4 H (0.7-2.1) mmol/L Calcium 9.6 (8.4-10.2) mg/dL Magnesium 1.7 (1.6-2.3) mg/dL Total Bilirubin 2.3 H (0.2-1.3) mg/dL AST 47 H (14-36) IU/L ALT 33 (<35) IU/L Alkaline Phosphatase 186 H (38-126) U/L Total Creatine Kinase 60 (30-135) U/L Troponin I < 0.012 < 0.012 (0.01-0.034) ng/mL NT-Pro-B Natriuret Pep 3870 H (<450) pg/mL Total Protein 8.3 H (6.3-8.2) g/dL Albumin 4.5 (3.5-5.0) g/dL Globulin 3.8 (1.7-4.1) g/dL Albumin/Globulin Ratio 1.2 (1.0-2.8) Lipase 178 (23-300) U/L Urine Color Yellow Urine Appearance Clear Urine pH 6.0 (4.5-8.0) Ur Specific [place] 1.010 (1.000-1.035) Urine Protein Negative (Negative) Urine Glucose (UA) 3+ H (Negative) g/dL Urine Ketones Negative (NEGATIVE) Urine Occult Blood Trace-intact (Negative) Urine Nitrate Negative (Negative) Urine Bilirubin Negative (NEGATIVE) Urine Urobilinogen 0.2 (0.2) E.U./dL Ur Leukocyte Esterase Trace H (NEGATIVE) Urine RBC 0-1/hpf (0-5/HPF) Urine WBC 1-5/hpf (0-5/HPF) Ur Squamous Epith Cells 0-1 /hpf (0-5/HPF) Urine Bacteria None seen (None) Ur Culture Indicated? Cult not indicated Vol Urine Centrifuged 10ml (spun) Imaging Data Chest x-ray: Radiologist's Impression: [address] [address] XRay Report Signed Patient: Pal Guerrero MR#: [id number] : 1950 Acct:[id number] Age/Sex: 75 / F Date of Service: 03/08/25 Loc: ED Accession Number: [id number] Procedure: XR chest 1V Ordering Provider: Gerardo Herring MD PROCEDURE: XR CHEST 1V INDICATIONS: Chest Pain TECHNIQUE: One view of the chest was acquired. COMPARISON: [facility], , XR CHEST 1 VIEW, 03/05/2022, 21:32. FINDINGS: Surgical changes and devices: None. Lungs and pleura: Mild interstitial prominence. No pleural effusions or pneumothorax. Mediastinum: Mediastinal contours appear normal. Heart size is enlarged. Bones and chest wall: No suspicious bony lesions. Overlying soft tissues appear unremarkable. IMPRESSION: Cardiomegaly and mild interstitial prominence, correlate for mild pulmonary edema. Dictated by: Adrien Brand M.D. on 03/08/2025 at 15:10 Approved by: Adrien Brand M.D. on 03/08/2025 at 15:11 CT scan - head: Radiologist's Impression: Close Head/Neck CTA (Signed) Barrington Davies - 03/08/[address] (Signed) Barrington Davies - 03/08/25 Chest X-Ray (Signed) Adrien Brand - 03/08/25 Launch?Image [address] [address] [address] Scan Report Signed Patient: Pal Guerrero MR#: [id number] : 1950 Acct:[id number] Age/Sex: 75 / F Date of Service: 03/08/25 Loc: ED Accession Number: [id number] Procedure: CT head/brain wo con Ordering Provider: Saurav Hdz MD PROCEDURE: CT HEAD/BRAIN WO CON INDICATIONS: dizziness TECHNIQUE: Noncontrast 4.5 mm thick angled axial sections acquired from the foramen magnum to the vertex, with coronal and sagittal reformats. For radiation dose reduction, the following was used: automated exposure control, adjustment of mA and/or kV according to patient size. COMPARISON: None. FINDINGS: Image quality: Diagnostic. CSF spaces: Basal cisterns are patent. No extra-axial fluid collections. The ventricles are symmetric in size and shape. Brain: No intracranial bleeds or mass effect. There is cerebral volume loss, with resultant ventricular and sulcal prominence. There are periventricular and deep white matter chronic small vessel ischemic changes. There is intracranial internal carotid artery atherosclerosis. Skull and face: Calvarium and visualized facial bones appear intact, without suspicious lesions. Sinuses: Visualized sinuses and mastoids are clear. IMPRESSION: No acute intracranial pathology. Dictated by: Barrington Davies M.D. on 03/08/2025 at 21:18 Approved by: Barrington Davies M.D. on 03/08/2025 at 21:20 CTA - brain/neck: Radiologist's Impression: [place] [address] CT Scan Report Signed Patient: Pal Guerrero MR#: [id number] : 1950 Acct:[id number] Age/Sex: 75 / F Date of Service: 03/08/25 Loc: ED Accession Number: [id number] Procedure: CT angio head and neck Ordering Provider: Saurav Hdz MD PROCEDURE: CT ANGIO HEAD AND NECK INDICATIONS: dizziness TECHNIQUE: After the administration of intravenous contrast, 1 mm thick sections acquired from the aortic arch through the [place]. 3-dimensional ielurey-acbfcelqh-pmyxzlnmfj (MIP) and/or volume rendering reformats were acquired of the central intracranial vasculature and neck separately. For radiation dose reduction, the following was used: automated exposure control, adjustment of mA and/or kV according to patient size. COMPARISON: None. FINDINGS: Image quality: Diagnostic. HEAD CT ANGIOGRAPHY: Anterior circulation: Intracranial internal carotid arteries are normal in size and flow. The flow within the paired anterior cerebral arteries is normal and symmetric. The flow within the middle cerebral arteries is normal and symmetric. The anterior communicating artery is seen. No aneurysms are seen. Moderate atherosclerosis at the C6-C7 segments of the internal carotid arteries. Posterior circulation: Visualized portions of the vertebral arteries demonstrate normal caliber, and join to form a normal appearing basilar artery. Flow within the posterior cerebral arteries is normal and symmetric. No aneurysms are seen. NECK CT ANGIOGRAPHY: Carotid system: The great vessels demonstrate a conventional anatomy as they arise from the aortic arch. The origins of the common carotid arteries appear patent. The common carotid arteries demonstrate normal caliber and courses. The bifurcation regions are both widely patent. The internal carotid arteries demonstrate normal calibers and courses. Posterior circulation: The left vertebral artery is dominant in the posterior circulation. The origins of the vertebral arteries both appear widely patent. The more superior extracranial portions of both vertebral arteries also demonstrate normal courses and calibers. They join to form a normal appearing basilar artery. Soft tissues: Visualized neck soft tissues demonstrate no suspicious abnormalities. Bones: No suspicious bony lesions. Straightening of the cervical lordosis with diffuse idiopathic skeletal hyperostosis of the spine from C5-T2. Mild multilevel facet and uncinate arthropathy. IMPRESSION: No large vessel occlusion, dissection, or aneurysm in the visualized head and neck arterial vasculature. Any quantitative measurements of stenosis were performed using NASCET criteria. Dictated by: Barrington Davies M.D. on 03/08/2025 at 21:20 Approved by: Barrington Davies M.D. on 03/08/2025 at 21:24 MDM Narrative Medical decision making narrative: 75-year-old female with a past medical history of endometrial cancer s/p hysterectomy, paroxysmal atrial fibrillation on 2.5 Eliquis, COPD, RA, gout, urinary incontinence, CHF, insulin-dependent T2 DM, GERD, CKD who presents to the emergency department for dizziness ever since she had an outpatient lab draw yesterday. Differential diagnosis includes but is not limited to dehydration, orthostasis, anemia, UTI, electrolyte disturbance, arrhythmia, etc. On exam the patient is in no acute distress, nontoxic appearing, provides clear and full history. Dizziness NIO was started in triage and then patient was brought to the fast track area of the emergency department however EKG reveals AFib RVR, initial labs reveal elevated glucose of 352, BNP of 3870, Lactate 2.3, GFR of 34. Patient will be transferred to the main emergency department for higher level of care and for cardiac monitoring. [id number]. Sign-out from TERRI Barraza [place] apparently went home. 75-year-old female with history of uterine cancer, paroxysmal atrial fibrillation on Eliquis chronic anticoagulation, COPD, diabetes, CHF, had outpatient lab draw yesterday, feeling dizzy since that time. Nonfocal neuro exam. Lab studies pending. Assumed care. 193, For me patient complains of dizziness since lab draw yesterday 2:00 p.m., no spinning sensation, no focal weakness to face arm or leg, no focal numbness to face arm or leg, not particularly worse with changes in positions up and down. She drank some fluids earlier today that is did not seem to improve the symptoms. History of congestive heart failure no. She has had ongoing diarrhea since July 2024, no black or red component, not improved after she stopped colchicine by her PCP recommendation. Unclear cause of her dizziness. No neuro imaging thus far. We discussed CT head noncontrast imaging, CT angiogram of the head and neck vessels, she would like to pursue this at this time. EKG at 1433h, atrial fibrillation with rapid ventricular response, rate 106. No obvious ST segment elevation or depression changes. PVC noted. QRS 76. QTC 472. Chest x-ray shows cardiomegaly, no other changes acute. See radiology report. CT head, no acute changes. See radiology report. CT angiogram head and neck vessels, no significant narrowing, no thromboses. See radiology report. Initial lactate 2.3 slight elevation, on repeat similar 2.4 elevation. No elevated white blood cell count, no fever. Unclear etiology. Consider IV dose of Lasix for congestive heart failure, declined. Consider admission for cardiac echo, MRI of the brain, other testing, also declined. She feels better without specific therapies, and wants to go home. Family member at bedside concurs, we will take her home, stated that they would follow up with your regular doctor tomorrow for further workup. They seemed to expressed understanding of return precautions. Discharged home per patient request. <Gerardo Herring MD - Last Filed: 03/09/25 09:49> Lab Data Labs: Lab Results 03/08/25 03/08/25 03/08/25 Range/Units 14:48 14:58 17:40 WBC 10.0 (4.5-11.0) X10^3/uL RBC 5.01 (4.0-5.2) X10^6/uL Hgb 15.9 (12.0-16.0) g/dL Hct 47.5 H (36-46) % MCV 94.9 (80-100) fL MCH 31.8 (26-34) PG MCHC 33.5 (30-36) % RDW 15.6 H (11.6-14.8) % Plt Count 266 (150-400) X10^3/uL Neut % (Auto) 75.6 H (50-75) % Lymph % (Auto) 14.0 L (25-40) % [place] % (Auto) 8.6 (3-14) % Eos % (Auto) 0.6 L (2-4) % Baso % (Auto) 1.2 (0-2) % Neut # (Auto) 7500 H (4828-1983) /uL Lymph # (Auto) 1400 (4653-4033) /uL [place] # (Auto) 900 (0-900) /uL Eos # (Auto) 100 (0-450) /uL Baso # (Auto) 100 (0-100) /uL PT 13.3 H (9.4-12.5) SECONDS INR 1.2 (0.9-1.3) APTT 32 (25.1-36.5) SECONDS Sodium 134 L (137-145) mmol/L Potassium 4.7 (3.4-5.1) mmol/L Chloride 94 L (98-107) mmol/L Carbon Dioxide 26 (22-32) mmol/L BUN 42 H (7-17) mg/dL Creatinine 1.55 H (0.52-1.04) mg/dL Estimated GFR 34 L (>60) mL/min BUN/Creatinine Ratio 27.1 H (6-22) Glucose 352 H (70-99) mg/dL Lactate 2.3 H 2.4 H (0.7-2.1) mmol/L Calcium 9.6 (8.4-10.2) mg/dL Magnesium 1.7 (1.6-2.3) mg/dL Total Bilirubin 2.3 H (0.2-1.3) mg/dL AST 47 H (14-36) IU/L ALT 33 (<35) IU/L Alkaline Phosphatase 186 H (38-126) U/L Total Creatine Kinase 60 (30-135) U/L Troponin I < 0.012 < 0.012 (0.01-0.034) ng/mL NT-Pro-B Natriuret Pep 3870 H (<450) pg/mL Total Protein 8.3 H (6.3-8.2) g/dL Albumin 4.5 (3.5-5.0) g/dL Globulin 3.8 (1.7-4.1) g/dL Albumin/Globulin Ratio 1.2 (1.0-2.8) Lipase 178 (23-300) U/L Urine Color Yellow Urine Appearance Clear Urine pH 6.0 (4.5-8.0) Ur Specific [place] 1.010 (1.000-1.035) Urine Protein Negative (Negative) Urine Glucose (UA) 3+ H (Negative) g/dL Urine Ketones Negative (NEGATIVE) Urine Occult Blood Trace-intact (Negative) Urine Nitrate Negative (Negative) Urine Bilirubin Negative (NEGATIVE) Urine Urobilinogen 0.2 (0.2) E.U./dL Ur Leukocyte Esterase Trace H (NEGATIVE) Urine RBC 0-1/hpf (0-5/HPF) Urine WBC 1-5/hpf (0-5/HPF) Ur Squamous Epith Cells 0-1 /hpf (0-5/HPF) Urine Bacteria None seen (None) Ur Culture Indicated? Cult not indicated Vol Urine Centrifuged 10ml (spun) Discharge Plan Departure Patient Disposition: Home Clinical Impression: Congestive heart failure, Dizziness, Atrial fibrillation Activity Restrictions/Additional Instructions: Dizziness of unclear cause. CT brain and CT angiogram of the head and neck vessels were unrevealing. EKG shows atrial fibrillation which you have had in the past. Chest x-ray and labs suggestive of congestive heart failure, although you were without any need for supplemental oxygen at this time, in no respiratory distress, speaking in full sentences. Lactate was slightly elevated and essentially unchanged in follow up, no obvious source of infections identified. We discussed IV Lasix, declined. We discussed further observation admission to the hospital, that might include further workup such as MRI of the brain and cardiac echocardiogram ultrasound, also declined. We discussed further observation here in the emergency department, declined, felt better, requests for discharge home. You were discharged home with family members. Continue for now taking your chronic medications as prescribed. You stated that you would follow up with your regular doctor tomorrow. Return earlier to this/nearest emergency department for any change worsening symptoms or any concerns prior. Prescriptions: No Action insulin glargine [Lantus U-100 Insulin] 100 unit/mL Solution 30 unit SUBCUT BID insulin aspart U-100 [Novolog U-100 Insulin aspart] 100 unit/mL solution Patient Comments: USE PER SLIDING SCALE UP TO 25 UNITS WITH MEALS. MAX 75 UNITS DAILY albuterol sulfate [Ventolin HFA] 90 mcg/actuation HFA aerosol inhaler INHALATION Patient Comments: INHALE 2 PUFFS BY MOUTH EVERY 4 HOURS NEEDED FOR WHEEZING FOR SHORTNESS OF BREATH tiotropium bromide [Spiriva with HandiHaler] 18 mcg Capsule, W/Inhalation Device 1 cap INHALATION DAILY Rx Instructions: puncture 1 cap using device; one dose = 2 inhalations Eliquis 5 mg tablet Patient Comments: TAKE 1 TABLET BY MOUTH TWICE DAILY Rx Instructions: per pt stopped week of May Ozempic 1 mg/dose (4 mg/3 mL) pen injector SUBCUT Patient Comments: INJECT 1MG SUBCUTANEOUSLY ONCE A WEEK tiotropium bromide [Spiriva with HandiHaler] 18 mcg capsule, w/inhalation device 1 cap inhalation DAILY Qty: 1 12RF Rx Instructions: puncture 1 cap using device; one dose = 2 inhalations allopurinol 300 mg tablet 300 mg PO DAILY colchicine [Mitigare] 0.6 mg capsule 0.6 mg PO DAILY potassium chloride 20 mEq tablet,ER particles/crystals 20 meq PO BID bumetanide 2 mg tablet 2 mg PO BID gabapentin 100 mg capsule 200 mg PO BID thyroid (pork) [[place] Thyroid] 90 mg tablet 90 mg PO DAILY metoprolol tartrate 50 mg tablet 50 mg PO DAILY spironolactone 25 mg tablet 25 mg PO DAILY Jardiance 25 mg tablet 25 mg PO DAILY famotidine 40 mg tablet 40 mg PO BEDTIME cholecalciferol (vitamin D3) 125 mcg (5,000 unit) capsule 125 mcg PO DAILY magnesium citrate 100 mg capsule 100 mg PO DAILY Referrals: Isidro Betancourt MD [Primary Care Provider] - Stand Alone Forms: Patient Portal/API/Survey
[2025-03-08 15:15] LABS: INR 1.2 (0.9-1.3); Prothrombin Time 13.3 SECONDS (9.4-12.5)
[2025-03-08 15:18] LABS: PTT Partial Thromboplastin Tim 32 SECONDS (25.1-36.5)
[2025-03-08 15:20] LABS: Alanine Aminotransferase 33 IU/L (<35); Albumin 4.5 g/dL (3.5-5.0); Albumin Globulin Ratio 1.2 (1.0-2.8); Alkaline Phosphatase 186 U/L (38-126); Aspartate Aminotransferase 47 IU/L (14-36); BUN Creatinine Ratio 27.1 (6-22); Bilirubin Total 2.3 mg/dL (0.2-1.3); Blood Urea Nitrogen 42 mg/dL (7-17); Calcium 9.6 mg/dL (8.4-10.2); Carbon Dioxide 26 mmol/L (22-32); Chloride 94 mmol/L (98-107); Creatine Kinase 60 U/L (30-135); Estimated Glomerular Filt Rate 34 mL/min (>60); Globulin 3.8 g/dL (1.7-4.1); Glucose 352 mg/dL (70-99); HEMOLYSIS 19 (0-50); Lactate (Lactic Acid) 2.3 mmol/L (0.7-2.1); Lipase 178 U/L (23-300); Magnesium 1.7 mg/dL (1.6-2.3); Potassium 4.7 mmol/L (3.4-5.1); Sodium 134 mmol/L (137-145); Total Protein 8.3 g/dL (6.3-8.2)
[2025-03-08 15:31] LABS: Appearance Urine UA CLEAR; Bilirubin Urine UA NEGATIVE (NEGATIVE); Color Urine UA YELLOW; Glucose Urine UA 3+ g/dL (Negative); Ketones Urine UA NEGATIVE (NEGATIVE); Leukocyte Esterase Urine UA TRACE (NEGATIVE); Nitrite Urine UA NEGATIVE (Negative); Occult Blood Urine UA TRACE-INTACT (Negative); Protein Urine UA NEGATIVE (Negative); Urobilinogen Urine UA 0.2 E.U./dL (0.2)
[2025-03-08 15:32] LABS: NT-proBNP (BNP-Adult 18+) 3870 pg/mL (<450); Troponin I < 0.012 ng/mL (0.01-0.034)
[2025-03-08 15:50] LABS: Bacteria Urine None Seen; Culture Indicated Urine Cult Not Indicated; RBC Urine 0-1/HPF (0-5/HPF); Squamous Epithelial Cell Urine 0-1 /HPF (0-5/HPF); Urine Volume 10mL (spun); WBC Urine 1-5/HPF (0-5/HPF)
[2025-03-08 16:32] LABS: Reflexed Lactate in 2 Hours Y
[2025-03-08 18:01] LABS: Lactate 2HR (Lactic Acid Rflx) 2.4 mmol/L (0.7-2.1)
--- NOTE | 2025-03-08 19:39 | DI.CT.S_ITS ---
PROCEDURE: CT HEAD/BRAIN WO CON INDICATIONS: dizziness TECHNIQUE: Noncontrast 4.5 mm thick angled axial sections acquired from the foramen magnum to the vertex, with coronal and sagittal reformats. For radiation dose reduction, the following was used: automated exposure control, adjustment of mA and/or kV according to patient size. COMPARISON: None. FINDINGS: Image quality: Diagnostic. CSF spaces: Basal cisterns are patent. No extra-axial fluid collections. The ventricles are symmetric in size and shape. Brain: No intracranial bleeds or mass effect. There is cerebral volume loss, with resultant ventricular and sulcal prominence. There are periventricular and deep white matter chronic small vessel ischemic changes. There is intracranial internal carotid artery atherosclerosis. Skull and face: Calvarium and visualized facial bones appear intact, without suspicious lesions. Sinuses: Visualized sinuses and mastoids are clear. IMPRESSION: No acute intracranial pathology. Dictated by: Barrington Davies M.D. on 03/08/2025 at 21:18 Approved by: Barrington Davies M.D. on 03/08/2025 at 21:20
--- NOTE | 2025-03-08 19:40 | DI.CT.S_ITS ---
PROCEDURE: CT ANGIO HEAD AND NECK INDICATIONS: dizziness TECHNIQUE: After the administration of intravenous contrast, 1 mm thick sections acquired from the aortic arch through the [place]. 3-dimensional fjenrqh-djhgwrkzu-qioufkygmx (MIP) and/or volume rendering reformats were acquired of the central intracranial vasculature and neck separately. For radiation dose reduction, the following was used: automated exposure control, adjustment of mA and/or kV according to patient size. COMPARISON: None. FINDINGS: Image quality: Diagnostic. HEAD CT ANGIOGRAPHY: Anterior circulation: Intracranial internal carotid arteries are normal in size and flow. The flow within the paired anterior cerebral arteries is normal and symmetric. The flow within the middle cerebral arteries is normal and symmetric. The anterior communicating artery is seen. No aneurysms are seen. Moderate atherosclerosis at the C6-C7 segments of the internal carotid arteries. Posterior circulation: Visualized portions of the vertebral arteries demonstrate normal caliber, and join to form a normal appearing basilar artery. Flow within the posterior cerebral arteries is normal and symmetric. No aneurysms are seen. NECK CT ANGIOGRAPHY: Carotid system: The great vessels demonstrate a conventional anatomy as they arise from the aortic arch. The origins of the common carotid arteries appear patent. The common carotid arteries demonstrate normal caliber and courses. The bifurcation regions are both widely patent. The internal carotid arteries demonstrate normal calibers and courses. Posterior circulation: The left vertebral artery is dominant in the posterior circulation. The origins of the vertebral arteries both appear widely patent. The more superior extracranial portions of both vertebral arteries also demonstrate normal courses and calibers. They join to form a normal appearing basilar artery. Soft tissues: Visualized neck soft tissues demonstrate no suspicious abnormalities. Bones: No suspicious bony lesions. Straightening of the cervical lordosis with diffuse idiopathic skeletal hyperostosis of the spine from C5-T2. Mild multilevel facet and uncinate arthropathy. IMPRESSION: No large vessel occlusion, dissection, or aneurysm in the visualized head and neck arterial vasculature. Any quantitative measurements of stenosis were performed using NASCET criteria. Dictated by: Barrington Davies M.D. on 03/08/2025 at 21:20 Approved by: Barrington Davies M.D. on 03/08/2025 at 21:24
[2025-03-08 19:58] LABS: Troponin I < 0.012 ng/mL (0.01-0.034)
[2025-03-08] MEDS: ONDANSETRON 4 MG/2 ML INJ IV (20:45)
== END 2025-03-08 23:48 | disposition home or self-care (01) ==
PROVIDERS: Emergency Medicine; Physician Assistant; Emergency Provider Emergency Medicine; PCP Family Medicine
DX: I50.9 Heart failure, unspecified (principal); R42 Dizziness and giddiness; I48.91 Unspecified atrial fibrillation; Z79.01 Long term (current) use of anticoagulants; E11.9 Type 2 diabetes mellitus without complications; Z79.4 Long term (current) use of insulin
CPT/HCPCS: 36415; 70450; 70496; 70498; 71045; 80053; 81001; 82550; 83605; 83690; 83735; 83880; 84484; 85025; 85610; 85730; 93005; 93010; 96374; 99284; J2405; Q9967

== ENCOUNTER → 2025-07-17 15:24 | Outpatient (CLI) | payer MEDICARE, SELFPAY ==
--- NOTE | 2025-07-17 15:25 | DI.RAD.S_ITS ---
PROCEDURE: XR CHEST 2V INDICATIONS: Shortness of breath, eval for pna or effusion TECHNIQUE: 2 views of the chest were acquired. COMPARISON: [facility], CR, XR CHEST 1V, 03/08/2025, 14:37. FINDINGS: Heart, mediastinum and pulmonary vascular: Heart is normal in size and configuration. Mediastinum is unremarkable. Pulmonary vascular is normal. Lungs: Clear Pleural spaces: Normal-no effusions or pneumothorax. IMPRESSION: Normal chest. Dictated by: Kareem Ontiveros M.D. on 07/18/2025 at 10:38 Approved by: Kareem Ontiveros M.D. on 07/18/2025 at 10:39
== END ==
PROVIDERS: PCP Family Medicine; Referring Provider Internal Medicine Critical Care Medicine; Visit Provider Internal Medicine Critical Care Medicine
DX: R06.09 Other forms of dyspnea (principal)
CPT/HCPCS: 71046